=== PATIENT | female | born 1970 | race Two or more races ===

== ENCOUNTER 2017-02-11 12:38 | Emergency (ER) | payer OTHER ==
[2017-02-11] MEDS ORDERED: KETOROLAC 30 MG/ML 1 ML VIAL IVP STA (13:23)
--- NOTE | 2017-02-11 13:29 | ED ---
General Adult HPI - General Chief complaint: Extremity Problem,Nontraumatic Stated complaint: Left Arm Numbness Time Seen by Provider: 02/11/17 12:40 Source: patient, RN notes reviewed Mode of arrival: ambulatory Limitations: no limitations - History of Present Illness Initial comments: This is a 47-year-old female presents emergency department stating that for the last couple of nights she wakes up in the middle night feels some squeezing in her left arm and that makes her extremely anxious, she has a history of anxiety. Patient states she had this years ago but it was in her right arm and it was anxiety at that time after her mother . Patient states she had no chest pain patient denies any palpitations patient denies difficulty breathing shortness of breath. Patient denies any nausea or vomiting. Patient states the pain does not appear to be worse with movement. However the pain does seem to start sometimes up and her trapezius muscle and radiates down into the arm. Patient states currently the pain is very minimal. Patient denies any lightheadedness or dizziness patient denies headache patient denies numbness weakness. Patient denies any abdominal pain. Patient denies any vomiting diarrhea. Patient denies any recent fever chills or cough. - Related Data Home Medications Medication Instructions Recorded Confirmed Loperamide [Imodium] 4 mg PO QID PRN 02/11/17 02/11/17 Multivitamins, Thera [Multivitamin 1 tab PO DAILY 02/11/17 02/11/17 (formulary)] Turmeric Root Extract [Turmeric] 500 mg PO DAILY 02/11/17 02/11/17 Allergies Allergy/AdvReac Type Severity Reaction Status Date / Time No Known Allergies Allergy Verified 02/11/17 13:42 Review of Systems ROS Statement: Those systems with pertinent positive or pertinent negative responses have been documented in the HPI. ROS Other: All systems not noted in ROS Statement are negative. Past Medical History Past Medical History: No Reported History History of Any Multi-Drug Resistant Organisms: None Reported Past Surgical History: Tonsillectomy, Tubal Ligation Past Psychological History: Anxiety Smoking Status: Current some day smoker Past Alcohol Use History: Occasional Past Drug Use History: None Reported General Exam - General Exam Comments Initial Comments: GENERAL: Patient is well-developed and well-nourished. Patient is nontoxic and well- hydrated and is in mild distress. ENT: Neck is soft and supple. No significant lymphadenopathy is noted. Oropharynx is clear. Moist mucous membranes. Neck has full range of motion without eliciting any pain. EYES: The sclera were anicteric and conjunctiva were pink and moist. Extraocular movements were intact and pupils were equal round and reactive to light. Eyelids were unremarkable. PULMONARY: Unlabored respirations. Good breath sounds bilaterally. No audible rales rhonchi or wheezing was noted. CARDIOVASCULAR: There is a regular rate and rhythm without any murmurs gallops or rubs. ABDOMEN: Soft and nontender with normal bowel sounds. SKIN: Skin is clear with no lesions or rashes and otherwise unremarkable. NEUROLOGIC: Patient is alert and oriented x3. Cranial nerves II through XII are grossly intact. Motor and sensory are also intact. Normal speech, volume and content. Symmetrical smile. MUSCULOSKELETAL: Normal extremities with adequate strength and full range of motion. LYMPHATICS: No significant lymphadenopathy is noted PSYCHIATRIC: Normal psychiatric evaluation. Normal interpersonal interactions appears functionally intact in deals appropriately with others. Patient appears mildly anxious. Limitations: no limitations Course Vital Signs 02/11/17 02/11/17 12:39 13:44 Temperature 97.9 F Pulse Rate 67 63 Respiratory 16 18 Rate Blood Pressure 130/61 119/73 O2 Sat by Pulse 99 97 Oximetry Medical Decision Making - Medical Decision Making EKG shows a normal sinus rhythm at 63 bpm MI interval is on a 96 QRS is 90 QT interval 434 QTC is [address] segment elevation or depression or T wave normalities are noted. - Lab Data Result diagrams: 02/11/17 13:49 02/11/17 13:49 Lab Results 02/11/17 02/11/17 02/11/17 Range/Units 13:49 13:49 13:49 WBC 5.8 (3.8-10.6) k/uL RBC 4.09 (3.80-5.40) m/uL Hgb 13.2 (11.4-16.0) gm/dL Hct 40.3 (34.0-46.0) % MCV 98.4 (80.0-100.0) fL MCH 32.2 (25.0-35.0) pg MCHC 32.8 (31.0-37.0) g/dL RDW 13.2 (11.5-15.5) % Plt Count 194 (150-450) k/uL Neutrophils % 68 % Lymphocytes % 24 % Monocytes % 5 % Eosinophils % 2 % Basophils % 0 % Neutrophils # 3.9 (1.3-7.7) k/uL Lymphocytes # 1.4 (1.0-4.8) k/uL Monocytes # 0.3 (0-1.0) k/uL Eosinophils # 0.1 (0-0.7) k/uL Basophils # 0.0 (0-0.2) k/uL Sodium 143 (137-145) mmol/L Potassium 3.8 (3.5-5.1) mmol/L Chloride 110 H (98-107) mmol/L Carbon Dioxide 22 (22-30) mmol/L Anion Gap 11 mmol/L BUN 14 (7-17) mg/dL Creatinine 0.82 (0.52-1.04) mg/dL Est GFR (MDRD) Af Amer >60 (>60 ml/min/1.73 sqM) Est GFR (MDRD) Non-Af >60 (>60 ml/min/1.73 sqM) Glucose 102 H (74-99) mg/dL Calcium 10.1 (8.4-10.2) mg/dL Magnesium 2.2 (1.6-2.3) mg/dL Total Bilirubin 0.5 (0.2-1.3) mg/dL AST 53 H (14-36) U/L ALT 93 H (9-52) U/L Alkaline Phosphatase 80 (38-126) U/L Troponin I <0.012 (0.000-0.034) ng/mL Total Protein 7.4 (6.3-8.2) g/dL Albumin 4.4 (3.5-5.0) g/dL Disposition Clinical Impression: Left arm pain Disposition: HOME SELF-CARE Condition: Good Instructions: Arm Pain (ED) Referrals: None,Stated [Primary Care Provider] - 1-2 days Time of Disposition: 14:57
[2017-02-11 13:45] VITALS: PULSE 63
[2017-02-11 14:02] LABS: HCT 40.3 % (34.0-46.0); HGB 13.2 gm/dL (11.4-16.0); MCH 32.2 pg (25.0-35.0); MCHC 32.8 g/dL (31.0-37.0); MCV 98.4 fL (80.0-100.0); Mean Platelet Volume 7.3; Platelet Count 194 k/uL (150-450); RBC 4.09 m/uL (3.80-5.40); RDW 13.2 % (11.5-15.5); WBC 5.8 k/uL (3.8-10.6)
[2017-02-11 14:33] LABS: ALT 93 U/L (9-52); AST 53 U/L (14-36); Albumin 4.4 g/dL (3.5-5.0); Alkaline Phosphatase 80 U/L (38-126); Anion Gap 11 mmol/L; Blood Urea Nitrogen 14 mg/dL (7-17); Calcium 10.1 mg/dL (8.4-10.2); Carbon Dioxide 22 mmol/L (22-30); Chloride 110 mmol/L (98-107); Glucose 102 mg/dL (74-99); Magnesium 2.2 mg/dL (1.6-2.3); Potassium 3.8 mmol/L (3.5-5.1); Sodium 143 mmol/L (137-145); Total Bilirubin 0.5 mg/dL (0.2-1.3); Total Protein 7.4 g/dL (6.3-8.2)
[2017-02-11 15:04] VITALS: BP 121/73; RESP 16; TEMP 98.3
[2017-02-11 16:23] LABS: Basophils % (A) 0 %; Eosinophils % (A) 2 %; Lymphocytes % (A) 24 %; Monocytes % (A) 5 %; Neutrophils % (A) 68 %
[2017-02-11 16:24] LABS: Eosinophils # (A) 0.1 k/uL (0-0.7); Lymphocytes # (A) 1.4 k/uL (1.0-4.8); Monocytes # (A) 0.3 k/uL (0-1.0); Neutrophils # (A) 3.9 k/uL (1.3-7.7)
== END 2017-02-11 15:30 | disposition home or self-care (01) ==
LOC: EC 12:38
DX: M79.602 Pain in left arm (principal); F17.200 Nicotine dependence, unspecified, uncomplicated; Z79.899 Other long term (current) drug therapy
CPT/HCPCS: 36415; 93005; 80053; 83735; 84484; 85025; 99284; 96374; J1885